=== PATIENT | male | born 1990 | race Caucasian/White ===

== ENCOUNTER 2019-04-07 13:44 | Emergency (ER) | payer MEDICAID ==
[2019-04-07] MEDS ORDERED: Diphtheria,Pertussis(Acell),Tetanus Vaccine 0.5 ML Syringe IM ONE (14:19)
--- NOTE | 2019-04-07 14:53 | EDM.PDOC ---
ED HPI GENERAL MEDICAL PROBLEM - General Chief Complaint: Laceration Stated Complaint: CUT FINGER Time Seen by Provider: 04/07/19 14:10 Source of Information: Reports: Patient, RN Notes Reviewed History Limitations: Reports: No Limitations - History of Present Illness INITIAL COMMENTS - FREE TEXT/NARRATIVE: Pt. sustained a laceration to the dorsum of his L index finger with a razor blade. He states that his tetanus is not up to date. The laceration is superficial and extends across the DIP joint. He states that ROM to the digit is unchanged. He denies any numbness/tingling in the distal portion of the extremity. Denies any injury elsewhere. Onset: Today Onset Date: 04/07/19 Location: Reports: Upper Extremity, Left Quality: Reports: Sharp Left Finger-Index Pain Score (Numeric/FACES): 4 - Related Data Allergies Allergy/AdvReac Type Severity Reaction Status Date / Time amoxicillin Allergy Hives Verified 04/07/19 14:19 Penicillins Allergy Hives Verified 04/07/19 14:19 Home Meds: Home Meds . [No Known Home Meds] 04/07/19 [History] Past Medical History - Past Health History Medical/Surgical History: Denies Medical/Surgical History Social & Family History - Tobacco Use Smoking Status *Q: Never Smoker - Recreational Drug Use Recreational Drug Use: Yes Recreational Drug Type: Reports: Marijuana/Hashish Recreational Drug Use Frequency: Weekly ED ROS GENERAL - Review of Systems Review Of Systems: ROS reveals no pertinent complaints other than HPI. ED EXAM, SKIN/RASH Exam: See Below Exam Limited By: No Limitations General Appearance: Alert, WD/WN, No Apparent Distress Extremities: Other (approx. 3 cm superficial laceration to dorsal L index finger. Very superficial and well approximated. It does not extend into the deeper structures of the digit. CMS intact to the extremity.) ED SKIN PROCEDURES - Laceration/Wound Repair Left Dorsal Digit - 2nd (Index) Lac/Wound length In cm: 3 Appearance: Superficial Distal NVT: Neuro & Vascular Intact, No Tendon Injury Skin Prep: Chlorhexidine (Hibiciens), Saline Saline Irrigation (cc's): 250 Exploration/Debridement/Repair: Wound Explored Closed with: Dermabond Course - Vital Signs Last Recorded V/S: Last Vital Signs Temp 37.1 C 04/07/19 14:00 Pulse 63 04/07/19 14:00 Resp 16 04/07/19 14:00 BP 115/87 04/07/19 14:00 Pulse Ox 99 04/07/19 14:00 - Orders/Labs/Meds Orders: Active Orders 24 hr Category Date Time Status Vaccines to be Administered [RC] PER UNIT ROUTINE Care 04/07/19 14:20 Active Meds: Medications Discontinued Medications Generic Name Dose Route Start Last Admin Trade Name Freq PRN Reason Stop Dose Admin Diphtheria/Tetanus/Acell Pertussis 0.5 ml 04/07/19 14:19 04/07/19 14:33 Adacel IM 04/07/19 14:20 0.5 ml .ONCE ONE Administration Departure - Departure Time of Disposition: 14:20 Disposition: Home, Self-Care 01 Clinical Impression: Laceration of finger of left hand - Discharge Information Instructions: Laceration Care, Adult, Stitches, Richy, or Adhesive Wound Closure, [id number] Forms: ED Department Discharge Additional Instructions: Keep dry for 24 hours. Return if redness, swelling, or discharge from the area. Try not to bend the finger much for the next few days if possible. - My Orders Last 24 Hours: My Active Orders 04/07/19 14:20 Vaccines to be Administered [RC] PER UNIT ROUTINE - Assessment/Plan Last 24 Hours: My Active Orders 04/07/19 14:20 Vaccines to be Administered [RC] PER UNIT ROUTINE Plan: Keep dry for 24 hours. Return if redness, swelling, or discharge from the area. Try not to bend the finger much for the next few days if possible.
== END 2019-04-07 14:37 | disposition home or self-care (01) ==
LOC: VM.ED 13:44
DX: S61.211A Laceration without foreign body of left index finger without damage to nail, initial encounter (principal); Z23 Encounter for immunization; Z88.1 Allergy status to other antibiotic agents; Z88.0 Allergy status to penicillin; W26.8XXA Contact with other sharp object(s), not elsewhere classified, initial encounter
CPT/HCPCS: 12002; 90471; 90715; 99282; 99283-GF